=== PATIENT | female | born 1995 | race Two or more races ===

== ENCOUNTER 2018-04-15 00:15 | Emergency (ER) | payer SELFPAY ==
--- NOTE | 2018-04-15 00:23 | EDPHY ---
H & P Stated Complaint: BACK PAIN, FALL/OFF BED Time Seen by Provider: 04/15/18 00:23 HPI/ROS: HPI CHIEF COMPLAINT: Low Back Pain fall. HISTORY OF PRESENT ILLNESS: 22-year-old female, otherwise healthy has history of asthma PTSD presents emergency room with low back pain. Patient was playing around on her bed with her friend, and fell off the edge of the bed. Landing on her back on the flat ground. Not complaining of low back pain. Denies chest pain or shortness of breath. Denies abdominal pain, main complaint low lumbar back pain. Midline. She denies any numbness or tingling denies any focal weakness. Normal gait. No saddle anesthesia. The bed was ground level. Past Medical History: Asthma, PTSD Past Surgical History: Recent surgery Social History: Denies drugs alcohol tobacco. Family History: Noncontributory ROS REVIEW OF SYSTEMS: 10 Systems were reviewed and negative with the exception of the elements mentioned in the history of present illness. Exam Constitutional triage nursing summary reviewed, vital signs reviewed, awake/ alert. Eyes normal conjunctivae and sclera, EOMI, PERRLA. HENT normal inspection, atraumatic, moist mucus membranes, no epistaxis, neck supple/ no meningismus, no raccoon eyes. Respiratory clear to auscultation bilaterally, normal breath sounds, no respiratory distress, no wheezing. Cardiovascular rate normal, regular rhythm, no murmur, no edema, distal pulses normal. Gastrointestinal soft, non-tender, no rebound, no guarding, normal bowel sounds, no distension, no pulsatile mass. Genitourinary no CVA tenderness. Musculoskeletal lumbar spine: Very mild lumbar back pain very low, no crepitus , no step-offs, no external signs of trauma. No leg weakness. Normal gait on exam. No saddle anesthesia. no midline vertebral tenderness, full range of motion, no calf swelling, no tenderness of extremities, no meningismus, good pulses, neurovascularly intact. Skin pink, warm, & dry, no rash, skin atraumatic. Neurologic awake, alert and oriented x 3, AAOx3, moves all 4 extremities equally, motor intact, sensory intact, CN II-XII intact, normal cerebellar, normal vision, normal speech. Psychiatric normal mood/affect. Heme/Lymph/Immune no lymphadenopathy. Differential Diagnosis: Includes but is not limited to in a particular order back contusion, soft tissue injury, musculoskeletal contusion, disc herniation, destroying, annular tear, compression fracture Medical Decision Making: Plan for this patient x-ray lumbar spine, Tylenol and Motrin for pain control. Re-evaluate. Re-evaluation: X-ray of the lumbar spine reviewed by myself. Negative for acute malalignment or acute fracture. Patient received Tylenol Motrin here. Resting comfortably no acute distress. She has a normal neurological exam without any saddle anesthesia, leg weakness or trouble ambulating. Do recommend Tylenol Motrin alternating every 6-8 hours. Recommend ice. Recommend rest. Return precautions discussed return emergency room worsening pain numbness or tingling trouble walking or not doing well. Source: Patient - Personal History LMP (Females 10-55): 15-21 Days Ago Current Tetanus Diphtheria and Acellular Pertussis (TDAP): No - Medical/Surgical History Hx Asthma: Yes Hx Chronic Respiratory Disease: No Hx Diabetes: No Hx Cardiac Disease: No Hx Renal Disease: No Hx Cirrhosis: No Hx Alcoholism: No Hx HIV/AIDS: No Hx Splenectomy or Spleen Trauma: No Other PMH: ASTHMA, PTSD - Social History Smoking Status: Never smoked Constitutional: Initial Vital Signs Temperature (C) 37.1 C 04/15/18 00:20 Heart Rate 100 04/15/18 00:20 Respiratory Rate 20 04/15/18 00:20 Blood Pressure 170/139 H 04/15/18 00:20 O2 Sat (%) 93 04/15/18 00:20 O2 Delivery Mode Room Air Allergies/Adverse Reactions: No Known Allergies Allergy (Unverified 04/15/18 00:19) Home Medications: Medication Instructions Recorded Albuterol 04/15/18 Medical Decision Making - Data Points Medications Given: Discontinued Medications Acetaminophen (Tylenol) 1,000 mg PO EDNOW ONE Stop: 04/15/18 00:29 Last Admin: 04/15/18 00:34 Dose: 1,000 mg Ibuprofen (Motrin) 800 mg PO EDNOW ONE Stop: 04/15/18 00:29 Last Admin: 04/15/18 00:41 Dose: Not Given Ibuprofen (Motrin) 400 mg PO EDNOW ONE Stop: 04/15/18 00:38 Last Admin: 04/15/18 00:39 Dose: 400 mg Departure - Departure Disposition: Home, Routine, Self-Care Clinical Impression: Low back strain Qualifiers: Encounter type: initial encounter Qualified Code(s): S39.012A - Strain of muscle, fascia and tendon of lower back, initial encounter Condition: Good Instructions: Acute Low Back Pain (ED), Contusion in Adults (ED), Back Pain (ED ) Referrals: NONE *PRIMARY CARE P,. [Primary Care Provider] - As per Instructions
[2018-04-15] MEDS ORDERED: ACETAMINOPHEN 500 MG TAB PO ONE (00:28)
[2018-04-15] MEDS ORDERED: IBUPROFEN 800 MG TAB PO ONE (00:28)
[2018-04-15] MEDS ORDERED: IBUPROFEN 200 MG TAB PO ONE ×2 (00:35→00:37)
[2018-04-15 02:29] VITALS: BP 138/86
== END 2018-04-15 02:28 | disposition home or self-care (01) ==
DX: S39.012A Strain of muscle, fascia and tendon of lower back, initial encounter (principal); W06.XXXA Fall from bed, initial encounter; Y93.83 Activity, rough housing and horseplay; Y92.003 Bedroom of unspecified non-institutional (private) residence as the place of occurrence of the external cause; Y99.8 Other external cause status